=== PATIENT | male | born 1960 | race Caucasian/White ===

== ENCOUNTER 2024-04-23 23:38 | Emergency (ER) | payer MEDICARE ==
[2024-04-23] MEDS ORDERED: Ketorolac 30 MG/ML SDV IM STA (23:56)
[2024-04-24] MEDS ORDERED: Sodium Chloride 0.9% 10 ML Syringe FLUSH PRN (00:09)
[2024-04-24] MEDS: Ketorolac 30 MG/ML SDV IVPUSH ONE (00:11)
[2024-04-24] MEDS: Baclofen 10 MG Tab PO ONE (00:17)
[2024-04-24] MEDS: Cyclobenzaprine 10 MG Tab PO ONE (00:18)
[2024-04-24] MEDS: HYDROmorphone 2 MG/ML SDV IVPUSH STA (00:19)
== END 2024-04-24 01:35 | disposition home or self-care (01) ==
LOC: FB.ED 23:38
DX: M51.369 Other intervertebral disc degeneration, lumbar region without mention of lumbar back pain or lower extremity pain (principal); Z79.899 Other long term (current) drug therapy
CPT/HCPCS: 96374; 96375; 99284; 99284-25; A9270-GY; J1171; J1885